=== PATIENT | female | born 1965 | race Caucasian/White ===

== ENCOUNTER 2020-01-23 09:34 | Outpatient (CLI) | payer OTHER ==
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
== END 2020-01-23 09:35 | disposition home or self-care (01) ==
LOC: BURRAD 09:34
PROVIDERS: ATTEND Nurse Practitioner Family
DX: R07.9 Chest pain, unspecified (principal); V89.2XXD Person injured in unspecified motor-vehicle accident, traffic, subsequent encounter
CPT/HCPCS: 71046

== ENCOUNTER 2021-07-13 13:16 | Outpatient (CLI) | payer OTHER | END 2021-07-13 13:17 | disposition home or self-care (01) | LOC: BURRAD 13:16 | PROVIDERS: ATTEND Pediatrics | DX: R06.02 Shortness of breath (principal); Z87.891 Personal history of nicotine dependence | CPT/HCPCS: 71046 ==